=== PATIENT | female | born 1975 | race Caucasian/White ===

== ENCOUNTER → 2025-01-20 13:11 | Outpatient (REF) | payer OTHER, SELFPAY | LOC: RCS 13:11 | PROVIDERS: ATTENDING PHYSICIAN Physician Assistant; FAMILY PHYSICIAN Family Medicine | DX: R07.9 Chest pain, unspecified (principal); R06.02 Shortness of breath; Z82.49 Family history of ischemic heart disease and other diseases of the circulatory system | CPT/HCPCS: 93017 ==